=== PATIENT | male | born 1950 | race Two or more races ===

== ENCOUNTER 2020-07-17 14:57 | Outpatient (CLI) | payer MEDICARE, OTHER | END 2020-07-17 23:59 | disposition home or self-care (01) | LOC: MSC 14:57 | PROVIDERS: ATTEND Internal Medicine | DX: Z09 Encounter for follow-up examination after completed treatment for conditions other than malignant neoplasm (principal); R74.01 Elevation of levels of liver transaminase levels; I71.9 Aortic aneurysm of unspecified site, without rupture; K52.9 Noninfective gastroenteritis and colitis, unspecified; Z90.49 Acquired absence of other specified parts of digestive tract; I10 Essential (primary) hypertension; I48.0 Paroxysmal atrial fibrillation; J44.9 Chronic obstructive pulmonary disease, unspecified; K86.1 Other chronic pancreatitis; N20.0 Calculus of kidney; Z90.2 Acquired absence of lung [part of]; Z95.0 Presence of cardiac pacemaker; Z79.899 Other long term (current) drug therapy; Z88.0 Allergy status to penicillin; Z88.5 Allergy status to narcotic agent ==

== ENCOUNTER 2021-01-14 10:10 | Outpatient (CLI) | payer MEDICARE, OTHER | END 2021-01-14 23:59 | disposition home or self-care (01) | LOC: MSC 10:10 | PROVIDERS: ATTEND Internal Medicine | DX: F32.9 Major depressive disorder, single episode, unspecified (principal); G47.00 Insomnia, unspecified; R53.83 Other fatigue; Z95.4 Presence of other heart-valve replacement; R74.01 Elevation of levels of liver transaminase levels; I71.9 Aortic aneurysm of unspecified site, without rupture; K52.9 Noninfective gastroenteritis and colitis, unspecified; I10 Essential (primary) hypertension; Z92.89 Personal history of other medical treatment; I48.0 Paroxysmal atrial fibrillation; Z79.82 Long term (current) use of aspirin; J44.9 Chronic obstructive pulmonary disease, unspecified; K86.1 Other chronic pancreatitis; N20.0 Calculus of kidney; Z90.2 Acquired absence of lung [part of]; Z95.0 Presence of cardiac pacemaker; Z79.899 Other long term (current) drug therapy ==

== ENCOUNTER → 2021-01-27 | Outpatient (CLI) | payer MEDICARE, OTHER | END | disposition home or self-care (01) | LOC: MSC 14:30 | PROVIDERS: ATTEND Internal Medicine | DX: G47.00 Insomnia, unspecified (principal); Z95.4 Presence of other heart-valve replacement; F32.9 Major depressive disorder, single episode, unspecified; R74.01 Elevation of levels of liver transaminase levels; I71.9 Aortic aneurysm of unspecified site, without rupture; K52.9 Noninfective gastroenteritis and colitis, unspecified; I10 Essential (primary) hypertension; Z98.890 Other specified postprocedural states; I48.0 Paroxysmal atrial fibrillation; J44.9 Chronic obstructive pulmonary disease, unspecified; K86.1 Other chronic pancreatitis; N20.0 Calculus of kidney; Z85.118 Personal history of other malignant neoplasm of bronchus and lung; Z90.2 Acquired absence of lung [part of]; Z95.0 Presence of cardiac pacemaker; Z79.82 Long term (current) use of aspirin; Z79.899 Other long term (current) drug therapy ==

== ENCOUNTER 2022-03-17 11:31 | Outpatient (CLI) | payer MEDICARE, OTHER ==
[2022-03-17] MEDS ORDERED: CARV25TA2 PO (13:15)
[2022-03-17] MEDS ORDERED: URSO250T12 PO (13:15)
[2022-03-17] MEDS ORDERED: LOSA50TA39 PO (13:15)
[2022-03-19] MEDS ORDERED: VALS80TA31 PO (16:02)
[2022-03-19] MEDS ORDERED: AMLO-212 PO (16:02)
== END 2022-03-17 23:59 | disposition home or self-care (01) ==
LOC: MSC 11:31
PROVIDERS: ATTEND Internal Medicine
DX: I16.0 Hypertensive urgency (principal); N48.89 Other specified disorders of penis; G47.00 Insomnia, unspecified; Z95.4 Presence of other heart-valve replacement; Z95.0 Presence of cardiac pacemaker; I71.9 Aortic aneurysm of unspecified site, without rupture; F32.A Depression, unspecified; R74.01 Elevation of levels of liver transaminase levels; K52.9 Noninfective gastroenteritis and colitis, unspecified; I48.0 Paroxysmal atrial fibrillation; Z79.82 Long term (current) use of aspirin; J44.9 Chronic obstructive pulmonary disease, unspecified; K86.1 Other chronic pancreatitis; N20.0 Calculus of kidney; Z85.118 Personal history of other malignant neoplasm of bronchus and lung; Z90.2 Acquired absence of lung [part of]; Z98.890 Other specified postprocedural states; Z79.899 Other long term (current) drug therapy

== ENCOUNTER 2022-03-17 12:15 | Inpatient (IN) | payer MEDICARE, OTHER ==
[~2022-03-17] VITALS: Ht 193 cm; Wt 68.0 kg
--- NOTE | 2022-03-17 12:26 | NUR ---
To ER bed 1, "My BP is higher than usual its usually in 190s earlier it was >200. QURESHI", aaox3, breathing even and non labored, connected to monitor, awaiting md villela
--- NOTE | 2022-03-17 12:45 | NUR ---
SALINE LOCK ESTABLISHED, BLOOD DRAWN AND SENT TO LAB
[2022-03-17 12:59] LABS: BASOPHILS % (AUTO) 0.8 % (0.0-2.0); EOSINOPHILS % (AUTO) 2.4 % (0.0-6.0); HEMATOCRIT 42 % (39-51); LYMPHOCYTES # (AUTO) 1.4 K/uL (0.8-4.8); LYMPHOCYTES % (AUTO) 25.2 % (20.0-44.0); MEAN CORPUSCULAR HGB CONC 33 g/dl (31.0-36.0); MEAN CORPUSCULAR VOLUME 91 fL (80-96); MONOCYTES # (AUTO) 0.6 K/uL (0.1-1.30); NEUTROPHILS # (AUTO) 3.5 K/uL (1.8-8.9); NEUTROPHILS % (AUTO) 61.6 % (43.0-81.0); PLATELET COUNT (AUTO) 178 K/uL (150-450); RED BLOOD CELL COUNT(AUTO) 4.66 MIL/uL (4.5-6.0); WHITE BLOOD COUNT (AUTO) 5.6 K/uL (4.3-11.0)
[2022-03-17] MEDS ORDERED: CARV25TA2 PO (13:15)
[2022-03-17] MEDS ORDERED: LOSA50TA39 PO (13:15)
[2022-03-17] MEDS ORDERED: URSO250T12 PO (13:15)
[2022-03-17 13:20] LABS: CALCIUM, SERUM 9.5 mg/dL (8.5-10.1); CARBON DIOXIDE 33 mmol/L (21-32); CHLORIDE 102 mmol/L (98-107); CREATININE 1.2 mg/dL (0.6-1.3); GLUCOSE 83 mg/dL (74-106); POTASSIUM 4.2 mmol/L (3.5-5.1); SODIUM SERUM 137 mmol/L (136-145); UREA NITROGEN, BLOOD 15 mg/dL (7-18)
[2022-03-17] MEDS ORDERED: hydrALAZINE HCL IV 20 MG VIAL IV ONE (14:00)
[2022-03-17] MEDS ORDERED: hydrALAZINE HCL IV 20 MG VIAL ONE (14:01)
--- NOTE | 2022-03-17 16:43 | NUR ---
BED 313-1
--- NOTE | 2022-03-17 16:49 | NUR ---
REPORT GIVEN TO THOMAS WONG FOR SHANNON
--- NOTE | 2022-03-17 17:55 | NUR ---
TRANSFERRED TO BED 313 IN STABLE CONDITION
[2022-03-17] MEDS ORDERED: MAG HYDROX/AL HYDROX/SIMETH 30 ML UDC PO PRN (18:00)
[2022-03-17] MEDS ORDERED: hydrALAZINE HCL 25 MG TABLET PO PRN (18:00)
[2022-03-17] MEDS ORDERED: ONDANSETRON HCL/PF 4 MG/2 ML VIAL IVP PRN (18:00)
[2022-03-17] MEDS ORDERED: Z GUARD REMEDY 4 OZ OINT TP PRN (18:00)
[2022-03-17] MEDS ORDERED: ACETAMINOPHEN 325 MG TABLET PO PRN (18:00)
[2022-03-17] MEDS ORDERED: MAGNESIUM HYDROXIDE 30 ML UDC PO PRN (18:00)
[2022-03-17] MEDS ORDERED: ZOLPIDEM TARTRATE 5 MG TABLET PO PRN (18:00)
--- NOTE | 2022-03-17 18:53 | NUR ---
DRUPAL ARCHITECTAGENCY SERVICE COORDINATOR NOTES: RECEIVED REPORT BY PHONE FROM ER STAFF. PT CAME TO UNIT @ 1820 VIA GURNEY, OBSERVED PT WALKING TO BED WITH STEADY GAIT. AWAKE, ALERT ORIENTED X4, VERBALIZES NEEDS. NO S/S OF SOB AND ACUTE DISTRESS NOTED ON RA, O2 SAT @ 99%. BP ELEVATED, 176/117, MEDICATED ORDERED. TELE MONITOR READS SR- 77; TEMP- 98.0, RR- 18. PT ORIENTED TO UNIT AND STAFF. LATE DINNER ORDERED PER CARDIAC DIET. SAFETY MEASURES IN PLACE, CALL LIGHT AND TABLE WITHIN REACH. ENCOURAGED PT TO USE CALL LIGHT FOR ASSISTANCE, PT VERBALIZED UNDERSTANDING; WILL ENDORSE TO PM SHIFT FOR SHANNON.
[2022-03-17] MEDS: IBUPROFEN 600 MG TABLET PO PRN (19:12)
--- NOTE | 2022-03-17 19:25 | NUR ---
MANAGER PROPOSAL OPENING NOTE RECEIVED PT LAYING IN BED. PT A/O X4, ABLE TO MAKE NEEDS KNOWN. PT ON RA, TOLERATING RA WELL. NO ACUTE DISTRESS; NO C/O PAIN, OR DISCOMFORT AT THIS TIME. PT ON TELE MONITOR READING SR, WITH HR: 74. SAFETY MEASURES IN PLACE. CALL LIGHT WITHIN REACH, BED LOCKED IN LOW POSITION, SR UP X2. WILL CONTINUE TO MONITOR PT.
[2022-03-17 20:00] VITALS: BP 167/102
--- NOTE | 2022-03-17 21:00 | NUR ---
IMPRESSION PRINTER NOTE PT IS COMPLAINING OF HEADACHE. PT WAS GIVEN MOTRIN AT 1912, AND HYDRALAZINE 25 MG FOR HIGH BP. BUT MEDS ARE INEFFECTIVE. LESA RAMIRES CALLED AND MADE AWARE. ADVISES TO GIVE PT COREG X1, AND COCOLLINAR X1. ORDERS IMPLEMENTED, AND CARRIED OUT.
[2022-03-17] MEDS ORDERED: CARVEDILOL 12.5 MG TABLET PO SCH (21:30)
[2022-03-17] MEDS ORDERED: LOSARTAN POTASSIUM 50 MG TABLET PO SCH (21:30)
[2022-03-18] VITALS (7 sets, daily range): BP systolic 145–164; BP diastolic 93–100
--- NOTE | 2022-03-18 | NUR ---
DECK ENGINEER NOTE PT'S BP DECREASED TO 157/94.
[2022-03-18] MEDS: IBUPROFEN 600 MG TABLET PO PRN ×2 (00:10→20:35)
--- NOTE | 2022-03-18 06:47 | NUR ---
GAMB CUTTER CLOSING NOTE LEFT PT STILL SLEEPING IN BED. A/Ox4, ABLE TO MAKE NEEDS KNOWN. ON RA, BREATHING EVENLY AND UNLABORED. NO SOB NOTED. NO S/SX OF RESPIRATORY DISTRESS NOTED. NO C/O PAIN OR DISCOMFORT AT THIS TIME. IV ACCESS TO LEFT AC SL, IV INTACT. SAFETY PRECAUTIONS IN PLACE: BED IN LOWEST, LOCKED POSITION, SIDE RAILS UP x2, AND BRAKES ON. TABLE AND CALL LIGHT WITHIN REACH. WILL ENDORSE PT'S CARE TO INCOMING SHIFT NURSE.
[2022-03-18 07:15] LABS: CALCIUM, SERUM 9.6 mg/dL (8.5-10.1); MAGNESIUM 1.9 mg/dL (1.8-2.4); PHOSPHORUS 3.6 mg/dL (2.5-4.9); POTASSIUM 4.2 mmol/L (3.5-5.1)
[2022-03-18 07:28] LABS: BASOPHILS % (AUTO) 0.5 % (0.0-2.0); EOSINOPHILS % (AUTO) 1.3 % (0.0-6.0); HEMATOCRIT 44 % (39-51); HEMOGLOBIN 14.7 g/dL (13.5-17.5); LYMPHOCYTES # (AUTO) 1.2 K/uL (0.8-4.8); LYMPHOCYTES % (AUTO) 15.9 % (20.0-44.0); MEAN CORPUSCULAR HGB CONC 33 g/dl (31.0-36.0); MEAN CORPUSCULAR VOLUME 90 fL (80-96); MONOCYTES # (AUTO) 0.7 K/uL (0.1-1.30); MONOCYTES % (AUTO) 8.5 % (2.0-12.0); NEUTROPHILS # (AUTO) 5.7 K/uL (1.8-8.9); NEUTROPHILS % (AUTO) 73.8 % (43.0-81.0); PLATELET COUNT (AUTO) 195 K/uL (150-450); RED BLOOD CELL COUNT(AUTO) 4.88 MIL/uL (4.5-6.0); THYROID STIMULATING HORMONE 1.436 uIU/mL (0.358-3.74); WHITE BLOOD COUNT (AUTO) 7.7 K/uL (4.3-11.0)
--- NOTE | 2022-03-18 07:35 | NUR ---
PRIMARY CARE PROVIDER OPENING NOTE RECEIVED PT LAYING IN BED. PT A/O X4, ABLE TO MAKE NEEDS KNOWN. PT ON RA, TOLERATING RA WELL. NO SOB OR DISTRESS NOTED ; NO C/O PAIN, OR DISCOMFORT AT THIS TIME. PT ON TELE MONITOR READING SR, WITH HR: 74. SAFETY MEASURES IN PLACE. CALL LIGHT WITHIN REACH, BED LOCKED IN LOW POSITION, SR UP X2. WILL CONTINUE TO MONITOR PT.
[2022-03-18] MEDS: PANTOPRAZOLE 40 MG TABLET.DR PO SCH (08:31)
[2022-03-18] MEDS: URSODIOL 300 MG CAPSULE PO SCH ×2 (08:32→16:40)
[2022-03-18] MEDS: CARVEDILOL 12.5 MG TABLET PO SCH ×2 (08:34→16:46)
[2022-03-18] MEDS ORDERED: LOSARTAN POTASSIUM 50 MG TABLET PO SCH (09:00)
[2022-03-18] MEDS: AMLODIPINE BESYLATE 5 MG TABLET PO SCH (11:11)
[2022-03-18] MEDS: VALSARTAN 80 MG TABLET PO SCH (11:12)
--- NOTE | 2022-03-18 19:15 | NUR ---
ATHLETIC SHOE DESIGNER OPENING NOTE RECEIVED PT LAYING IN BED. PT A/O X4, ABLE TO MAKE NEEDS KNOWN. PT ON RA, TOLERATING RA WELL. NO SOB OR DISTRESS NOTED ; NO C/O PAIN, OR DISCOMFORT AT THIS TIME. PT ON TELE MONITOR READING SR, WITH HR: 74. SAFETY MEASURES IN PLACE. CALL LIGHT WITHIN REACH, BED LOCKED IN LOW POSITION, SR UP X2. WILL CONTINUE TO MONITOR PT. Addendum: 03/18/22 at 1941 by FOUZIA AVALOS RN DISREGARD THIS DOCUMENTATION ENTERED A WRONG TIME
--- NOTE | 2022-03-18 19:30 | NUR ---
RN OPENING NOTE RECEIVED PATIENT IN BED; AWAKE, ALERT AND ORIENTED X 4. BREATHING EVENLY AND NONLABORED. ON ROOM AIR; TOLERATING WELL. NOT IN ANY FORM OF RESPIRATORY DISTRESS. NO C/O ANY PAIN OR DISCOMFORT AT THIS TIME. ON TELEMETRY MONITORING: SINUS RHYTHM HR-75 BPM. WITH IV ACCESS ON LEFT ANTECUBITAL 20g: INTACT, PATENT AND SALINE LOCKED. ABLE TO MAKE NEEDS KNOWN. SAFETY MEASURES IMPLEMENTED: CALL LIGHT AND TABLE WITHIN REACH, SIDE RAILS UP X 2, BED IN LOWEST LOCKED POSITION. WILL CONTINUE PLAN OF CARE.
--- NOTE | 2022-03-18 19:38 | NUR ---
REAL TIME OPERATOR CLOSING NOTE PATIENT AWAKE AND VERBALLY RESPONSIVE . PT A/O X4, ABLE TO MAKE NEEDS KNOWN. PT ON RA, TOLERATING RA WELL. NO SOB OR DISTRESS NOTED ; NO C/O PAIN, OR DISCOMFORT AT THIS TIME. PT ON TELE MONITOR READING SR, WITH HR: 74. ALL DUE MEDS GIVEN ORDERED , SAFETY MEASURES IN PLACE. CALL LIGHT WITHIN REACH, BED LOCKED IN LOW POSITION, SR UP X2. WILL CONTINUE TO MONITOR PT.
--- NOTE | 2022-03-18 20:35 | NUR ---
RN NOTE PATIENT C/O PAIN ON NECK AND BACK. PRN IBUPROFEN 600 MG PO GIVEN ORDERED. WILL CONTINUE TO MONITOR AND REASSESS PT.
[2022-03-18] MEDS ORDERED: ENOXAPARIN SODIUM 40 MG/0.4 ML DISP.SYRIN SQ SCH (21:00)
--- NOTE | 2022-03-18 21:39 | NUR ---
RN NOTE LOVENOX 40 MG SQ HELD PER PATIENT'S REQUEST. NO S/S OF BLEEDING NOTED. WILL CONTINUE TO MONITOR PT.
[2022-03-19] VITALS: BP 147/90
[2022-03-19 04:00] VITALS: BP 137/89
--- NOTE | 2022-03-19 06:50 | NUR ---
RN CLOSING NOTE PATIENT IN BED; AWAKE, A/O X 4. STABLE ON ROOM AIR. IN NO ACUTE DISTRESS. DENIES ANY PAIN OR DISCOMFORT AT THIS TIME. ON TELEMETRY MONITORING: SINUS RHYTHM HR-75 BPM. WITH IV ACCESS ON LEFT ANTECUBITAL 20g: INTACT, PATENT AND SALINE LOCKED. ALL NEEDS ATTENDED. SAFETY MEASURES MAINTAINED: CALL LIGHT AND TABLE WITHIN REACH, SIDE RAILS UP X 2, BED IN LOWEST LOCKED POSITION. ENDORSED TO MORNING SHIFT FOR SHANNON.
--- NOTE | 2022-03-19 07:20 | NUR ---
CUSTOM GRINDER OPENING NOTE PATIENT IN BED, AWAKE, A/O X 4. STABLE ON ROOM AIR. IN NO ACUTE DISTRESS. DENIES ANY PAIN OR DISCOMFORT AT THIS TIME. ON TELEMETRY MONITORING: SINUS RHYTHM HR-70'S BPM. WITH IV ACCESS ON LEFT ANTECUBITAL 20g: INTACT, PATENT AND SALINE LOCKED. ALL NEEDS ATTENDED. SAFETY MEASURES MAINTAINED: CALL LIGHT AND TABLE WITHIN REACH, SIDE RAILS UP X 2, BED IN LOWEST LOCKED POSITION. IN STABLE CONDITION.
[2022-03-19 08:00] VITALS: BP 159/97
[2022-03-19] MEDS: URSODIOL 300 MG CAPSULE PO SCH ×2 (08:39→17:15)
[2022-03-19] MEDS: CARVEDILOL 12.5 MG TABLET PO SCH ×2 (08:39→17:16)
[2022-03-19] MEDS: VALSARTAN 80 MG TABLET PO SCH (08:40)
[2022-03-19] MEDS: PANTOPRAZOLE 40 MG TABLET.DR PO SCH (08:40)
[2022-03-19] MEDS: AMLODIPINE BESYLATE 5 MG TABLET PO SCH (08:41)
[2022-03-19] MEDS ORDERED: IV NS 0.9% 250 ML IV ONE (10:07)
[2022-03-19] MEDS ORDERED: IOHEXOL-350 100 ML VIAL IV ONE (10:07)
[2022-03-19 16:00] VITALS: BP 111/80
[2022-03-19] MEDS ORDERED: AMLO-212 PO (16:02)
[2022-03-19] MEDS ORDERED: VALS80TA31 PO (16:02)
--- NOTE | 2022-03-19 16:08 | NUR ---
DOGGER NOTE ENDORSED TO MARVIN FRAGSOO FOR CONTINUITY OF CARE.
[2022-03-19 17:16] VITALS: BP 111/80
--- NOTE | 2022-03-19 17:35 | NUR ---
GLASS CUTTER HELPER NOTE PATIENT IN BED, AWAKE, A/O X 4. STABLE ON ROOM AIR. IN NO ACUTE DISTRESS. DENIES ANY PAIN OR DISCOMFORT AT THIS TIME. ALL DUE MEDS GIVEN ORDERED , PATIENT WITH ORDER FOR DISCHARGE AND DISCHARGE INSTRUCTIONS PROVIDED REGARDING MEDICATIONS , FOLLOW UP WITH PCP AND SUPERVISOR RIDE ASSEMBLY DR NAIR AND INFO GIVEN AND WHEN TO CALL 911 IN CASE OF EMERGENCY , IV ACCESS REMOVED AND ID BAND , ALL BELONGINGS WERE ACCOUNTED FOR AND FORM WAS SIGNED ACCOMPANIED TO THE LOBBY AND PATIENT WILL GO HOME AND DRIVE HIS OWN TRUCK IN A STABLE CONDITION AND NO SOB OR DISTRESS NOTED AND NO C/O OF PAIN AND DISCOMFORT UPON DISCHARGE .
== END 2022-03-19 17:33 | disposition home or self-care (01) | DRG 305 ==
LOC: ER 12:17 → TELE 17:51
PROVIDERS: ADMIT Student in an Organized Health Care Education/Training Program; ATTEND Student in an Organized Health Care Education/Training Program
DX: I16.0 Hypertensive urgency (principal); Z95.2 Presence of prosthetic heart valve; Z20.822 Contact with and (suspected) exposure to COVID-19; Z95.0 Presence of cardiac pacemaker; Z86.79 Personal history of other diseases of the circulatory system; Z90.49 Acquired absence of other specified parts of digestive tract; Z88.5 Allergy status to narcotic agent; Z88.0 Allergy status to penicillin; Z79.899 Other long term (current) drug therapy; J44.9 Chronic obstructive pulmonary disease, unspecified; I11.9 Hypertensive heart disease without heart failure; N20.0 Calculus of kidney
CPT/HCPCS: 36415; 70450-TC; 71045-TC; 74175-TC; 80048-TC; 83735-TC; 83880; 84100-TC; 84443-TC; 84484-TC; 85025-TC; 87081-TC; 93307-TC; C9803; G0378; J0360; J1650; J7050; Q9967

== ENCOUNTER 2022-03-29 14:00 | Outpatient (CLI) | payer MEDICARE, MEDICAID ==
[~2022-03-29 14:00] MED LIST: AMLO-212 PO; CARV25TA2 PO; URSO250T12 PO; VALS80TA31 PO
== END 2022-03-29 23:59 | disposition home or self-care (01) ==
LOC: MSC 14:00
PROVIDERS: ATTEND Internal Medicine
DX: I16.0 Hypertensive urgency (principal); R53.83 Other fatigue; N48.89 Other specified disorders of penis; G47.00 Insomnia, unspecified; Z95.4 Presence of other heart-valve replacement; Z95.0 Presence of cardiac pacemaker; I71.9 Aortic aneurysm of unspecified site, without rupture; F32.A Depression, unspecified; R74.01 Elevation of levels of liver transaminase levels; K52.9 Noninfective gastroenteritis and colitis, unspecified; I48.0 Paroxysmal atrial fibrillation; Z79.82 Long term (current) use of aspirin; J44.9 Chronic obstructive pulmonary disease, unspecified; K86.1 Other chronic pancreatitis; N20.0 Calculus of kidney; Z85.118 Personal history of other malignant neoplasm of bronchus and lung; Z90.2 Acquired absence of lung [part of]; Z98.890 Other specified postprocedural states

== ENCOUNTER → 2022-04-01 | Outpatient (CLI) | payer MEDICARE, OTHER | END | disposition home or self-care (01) | LOC: MSC 09:33 | PROVIDERS: ATTEND Internal Medicine | DX: I16.0 Hypertensive urgency (principal); R53.83 Other fatigue; N48.89 Other specified disorders of penis; G47.00 Insomnia, unspecified; Z95.4 Presence of other heart-valve replacement; Z95.0 Presence of cardiac pacemaker; I71.9 Aortic aneurysm of unspecified site, without rupture; F32.A Depression, unspecified; R74.01 Elevation of levels of liver transaminase levels; K52.9 Noninfective gastroenteritis and colitis, unspecified; I48.0 Paroxysmal atrial fibrillation; Z79.82 Long term (current) use of aspirin; J44.9 Chronic obstructive pulmonary disease, unspecified; K86.1 Other chronic pancreatitis; N20.0 Calculus of kidney; Z85.118 Personal history of other malignant neoplasm of bronchus and lung; Z90.2 Acquired absence of lung [part of]; Z98.890 Other specified postprocedural states ==

== ENCOUNTER → 2022-04-15 | Outpatient (CLI) | payer MEDICARE, OTHER | END | disposition home or self-care (01) | LOC: MSC 16:00 | PROVIDERS: ATTEND Internal Medicine | DX: I10 Essential (primary) hypertension (principal); I95.9 Hypotension, unspecified; N48.89 Other specified disorders of penis; G47.00 Insomnia, unspecified; Z95.4 Presence of other heart-valve replacement; Z95.0 Presence of cardiac pacemaker; I71.9 Aortic aneurysm of unspecified site, without rupture; F32.A Depression, unspecified; R74.01 Elevation of levels of liver transaminase levels; K52.9 Noninfective gastroenteritis and colitis, unspecified; I48.0 Paroxysmal atrial fibrillation; Z79.82 Long term (current) use of aspirin; J44.9 Chronic obstructive pulmonary disease, unspecified; K86.1 Other chronic pancreatitis; N20.0 Calculus of kidney; Z85.118 Personal history of other malignant neoplasm of bronchus and lung; Z90.2 Acquired absence of lung [part of]; Z98.890 Other specified postprocedural states ==

== ENCOUNTER 2022-05-03 11:28 | Outpatient (CLI) | payer MEDICARE, OTHER ==
[2022-05-03 13:34] LABS: BASOPHILS % (AUTO) 0.4 % (0.0-2.0); EOSINOPHILS % (AUTO) 2.1 % (0.0-6.0); HEMATOCRIT 40 % (39-51); LYMPHOCYTES # (AUTO) 1.4 K/uL (0.8-4.8); LYMPHOCYTES % (AUTO) 27.4 % (20.0-44.0); MEAN CORPUSCULAR HGB CONC 33 g/dl (31.0-36.0); MEAN CORPUSCULAR VOLUME 91 fL (80-96); MONOCYTES # (AUTO) 0.5 K/uL (0.1-1.30); MONOCYTES % (AUTO) 9.6 % (2.0-12.0); NEUTROPHILS # (AUTO) 3.2 K/uL (1.8-8.9); NEUTROPHILS % (AUTO) 60.5 % (43.0-81.0); PLATELET COUNT (AUTO) 184 K/uL (150-450); WHITE BLOOD COUNT (AUTO) 5.3 K/uL (4.3-11.0)
[2022-05-03 13:42] LABS: BILIRUBIN,URINE NEGATIVE (NEGATIVE); COLOR,URINE YELLOW (YELLOW); LEUKOCYTE ESTERASE ,URINE NEGATIVE (NEGATIVE); NITRITE, URINE NEGATIVE (NEGATIVE); PH,URINE 5.5 (5.0-8.0); PROTEIN,URINE NEGATIVE (NEGATIVE); UGLUCOSE NEGATIVE (NEGATIVE); UROBILINOGEN,URINE 0.2 EU/dL (0.2)
[2022-05-03 14:07] LABS: THYROID STIMULATING HORMONE 2.647 uIU/mL (0.358-3.74)
[2022-05-03 14:10] LABS: C-REACTIVE PROTEIN 0.2 mg/dL (0.0-0.9)
[2022-05-03 14:12] LABS: URINE TOTAL PROTEIN 8.3 mg/dL (0-11.9)
[2022-05-03 14:18] LABS: ALBUMIN 3.8 g/dL (3.4-5.0); BILIRUBIN,TOTAL 0.6 mg/dL (0.2-1.0); CALCIUM, SERUM 8.8 mg/dL (8.5-10.1); CREATININE 1.1 mg/dL (0.6-1.3); MAGNESIUM 1.6 mg/dL (1.8-2.4); PHOSPHORUS 3.4 mg/dL (2.5-4.9); POTASSIUM 3.9 mmol/L (3.5-5.1); TOTAL PROTEIN, SERUM 6.8 g/dL (6.4-8.2)
== END 2022-05-03 23:59 | disposition home or self-care (01) ==
LOC: MSC 11:28
PROVIDERS: ATTEND Internal Medicine
DX: I10 Essential (primary) hypertension (principal); I95.9 Hypotension, unspecified; D22.39 Melanocytic nevi of other parts of face; G47.00 Insomnia, unspecified; Z95.4 Presence of other heart-valve replacement; Z95.0 Presence of cardiac pacemaker; I71.9 Aortic aneurysm of unspecified site, without rupture; F32.A Depression, unspecified; R74.01 Elevation of levels of liver transaminase levels; K52.9 Noninfective gastroenteritis and colitis, unspecified; I48.0 Paroxysmal atrial fibrillation; Z79.82 Long term (current) use of aspirin; J44.9 Chronic obstructive pulmonary disease, unspecified; K86.1 Other chronic pancreatitis; N20.0 Calculus of kidney; Z85.118 Personal history of other malignant neoplasm of bronchus and lung; Z90.2 Acquired absence of lung [part of]; Z98.890 Other specified postprocedural states
CPT/HCPCS: 80061; 85025; 83735; 83036; 84100; 85652; 81003; 36415; 84439; 82746; 84443; 82607; 80053; 86140; 82306; 82043; 82570; 84155; G0463

== ENCOUNTER → 2022-05-10 | Outpatient (CLI) | payer MEDICARE, OTHER | END | disposition home or self-care (01) | LOC: MSC 09:00 | PROVIDERS: ATTEND Internal Medicine | DX: I10 Essential (primary) hypertension (principal); I95.9 Hypotension, unspecified; E83.42 Hypomagnesemia; E55.9 Vitamin D deficiency, unspecified; E53.8 Deficiency of other specified B group vitamins; D22.39 Melanocytic nevi of other parts of face; G47.00 Insomnia, unspecified; Z95.4 Presence of other heart-valve replacement; Z95.0 Presence of cardiac pacemaker; I71.9 Aortic aneurysm of unspecified site, without rupture; F32.A Depression, unspecified; R74.01 Elevation of levels of liver transaminase levels; I48.0 Paroxysmal atrial fibrillation; Z79.82 Long term (current) use of aspirin; J44.9 Chronic obstructive pulmonary disease, unspecified; K86.1 Other chronic pancreatitis; N20.0 Calculus of kidney; Z85.118 Personal history of other malignant neoplasm of bronchus and lung; Z90.2 Acquired absence of lung [part of]; Z98.890 Other specified postprocedural states ==

== ENCOUNTER 2022-06-02 11:00 | Outpatient (CLI) | payer MEDICARE, OTHER ==
[2022-06-02 11:54] LABS: BASOPHILS % (AUTO) 0.6 % (0.0-2.0); EOSINOPHILS % (AUTO) 2.8 % (0.0-6.0); HEMATOCRIT 41 % (39-51); HEMOGLOBIN 13.6 g/dL (13.5-17.5); LYMPHOCYTES # (AUTO) 1.6 K/uL (0.8-4.8); LYMPHOCYTES % (AUTO) 25.9 % (20.0-44.0); MEAN CORPUSCULAR HGB CONC 33 g/dl (31.0-36.0); MEAN CORPUSCULAR VOLUME 90 fL (80-96); MONOCYTES # (AUTO) 0.6 K/uL (0.1-1.30); MONOCYTES % (AUTO) 8.9 % (2.0-12.0); NEUTROPHILS # (AUTO) 3.9 K/uL (1.8-8.9); NEUTROPHILS % (AUTO) 61.8 % (43.0-81.0); PLATELET COUNT (AUTO) 153 K/uL (150-450); WHITE BLOOD COUNT (AUTO) 6.3 K/uL (4.3-11.0)
[2022-06-02 12:10] LABS: IRON, SERUM 77 ug/dl (50-175); TOTAL IRON BINDING CAPACITY 305 ug/dl (250-450)
[2022-06-02 12:25] LABS: FERRITIN 215 ng/mL (8-388)
== END 2022-06-02 23:59 | disposition home or self-care (01) ==
LOC: MSC 11:00
PROVIDERS: ATTEND Internal Medicine
DX: I10 Essential (primary) hypertension (principal); E83.42 Hypomagnesemia; E55.9 Vitamin D deficiency, unspecified; E53.8 Deficiency of other specified B group vitamins; D22.39 Melanocytic nevi of other parts of face; G47.00 Insomnia, unspecified; Z95.4 Presence of other heart-valve replacement; Z95.0 Presence of cardiac pacemaker; I71.9 Aortic aneurysm of unspecified site, without rupture; F32.A Depression, unspecified; R74.01 Elevation of levels of liver transaminase levels; I48.0 Paroxysmal atrial fibrillation; Z79.82 Long term (current) use of aspirin; J44.9 Chronic obstructive pulmonary disease, unspecified; K86.1 Other chronic pancreatitis; N20.0 Calculus of kidney; Z85.118 Personal history of other malignant neoplasm of bronchus and lung; Z90.2 Acquired absence of lung [part of]; Z98.890 Other specified postprocedural states
CPT/HCPCS: 85025; 83540; 36415; 82728; G0463

== ENCOUNTER 2022-06-06 11:45 | Outpatient (CLI) | payer MEDICARE, OTHER ==
[2022-06-06 16:06] LABS: OCCULT BLOOD STOOL NEGATIVE (NEGATIVE)
== END 2022-06-06 23:59 | disposition home or self-care (01) ==
LOC: LAB 11:45
PROVIDERS: ATTEND Internal Medicine
DX: Z00.00 Encounter for general adult medical examination without abnormal findings (principal)
CPT/HCPCS: 82272-TC

== ENCOUNTER 2022-06-09 09:30 | Outpatient (CLI) | payer MEDICARE, OTHER | END 2022-06-09 23:59 | disposition home or self-care (01) | LOC: MSC 09:30 | PROVIDERS: ATTEND Internal Medicine | DX: R74.01 Elevation of levels of liver transaminase levels (principal); I10 Essential (primary) hypertension; E83.42 Hypomagnesemia; E55.9 Vitamin D deficiency, unspecified; E53.8 Deficiency of other specified B group vitamins; D22.39 Melanocytic nevi of other parts of face; G47.00 Insomnia, unspecified; Z95.4 Presence of other heart-valve replacement; Z95.0 Presence of cardiac pacemaker; I71.9 Aortic aneurysm of unspecified site, without rupture; F32.A Depression, unspecified; I48.0 Paroxysmal atrial fibrillation; Z79.82 Long term (current) use of aspirin; J44.9 Chronic obstructive pulmonary disease, unspecified; K86.1 Other chronic pancreatitis; N20.0 Calculus of kidney; Z85.118 Personal history of other malignant neoplasm of bronchus and lung; Z90.2 Acquired absence of lung [part of]; Z98.890 Other specified postprocedural states ==

== ENCOUNTER → 2023-10-11 | Outpatient (CLI) | payer MEDICARE, OTHER | END | disposition home or self-care (01) | LOC: MSC 14:45 | PROVIDERS: ATTEND Internal Medicine | DX: Z09 Encounter for follow-up examination after completed treatment for conditions other than malignant neoplasm (principal); I10 Essential (primary) hypertension; N20.0 Calculus of kidney; D64.9 Anemia, unspecified; E53.8 Deficiency of other specified B group vitamins; R74.01 Elevation of levels of liver transaminase levels; E83.42 Hypomagnesemia; E55.9 Vitamin D deficiency, unspecified; G47.00 Insomnia, unspecified; Z95.4 Presence of other heart-valve replacement; Z95.0 Presence of cardiac pacemaker; Z95.828 Presence of other vascular implants and grafts; I48.0 Paroxysmal atrial fibrillation; J44.9 Chronic obstructive pulmonary disease, unspecified; F32.A Depression, unspecified; K86.1 Other chronic pancreatitis; Z85.118 Personal history of other malignant neoplasm of bronchus and lung; Z90.2 Acquired absence of lung [part of] ==

== ENCOUNTER 2024-10-24 09:24 | Outpatient (CLI) | payer MEDICARE, OTHER ==
[2024-10-24 13:49] LABS: BASOPHILS % (AUTO) 0.6 % (0.0-2.0); EOSINOPHILS # (AUTO) 0.2 K/uL (0.0-0.7); EOSINOPHILS % (AUTO) 2.4 % (0.0-6.0); HEMATOCRIT 42 % (39-51); HEMOGLOBIN 14.8 g/dL (13.5-17.5); LYMPHOCYTES # (AUTO) 1.4 K/uL (0.8-4.8); LYMPHOCYTES % (AUTO) 20.6 % (20.0-44.0); MEAN CORPUSCULAR HEMOGLOBIN 32 PG (26.0-33.0); MEAN CORPUSCULAR HGB CONC 35 g/dl (31.0-36.0); MEAN CORPUSCULAR VOLUME 91 fL (80-96); MONOCYTES # (AUTO) 0.6 K/uL (0.1-1.30); MONOCYTES % (AUTO) 8.4 % (2.0-12.0); NEUTROPHILS # (AUTO) 4.5 K/uL (1.8-8.9); PLATELET COUNT (AUTO) 215 K/uL (150-450); RED BLOOD CELL COUNT(AUTO) 4.64 MIL/uL (4.5-6.0); RED CELL DISTRIBUTION WIDTH 14.4 % (11.5-15.0); WHITE BLOOD COUNT (AUTO) 6.6 K/uL (4.3-11.0)
[2024-10-28 18:09] LABS: RENIN, PLASMA 0.233 ng/mL/hr (.)
[2024-10-30 00:06] LABS: ALDOSTERONE,LCMS 1.9 ng/dL (.)
== END 2024-10-24 23:59 | disposition home or self-care (01) ==
LOC: LAB 09:24
PROVIDERS: ATTEND Internal Medicine
DX: I10 Essential (primary) hypertension (principal); E26.9 Hyperaldosteronism, unspecified; F43.9 Reaction to severe stress, unspecified; D64.9 Anemia, unspecified
CPT/HCPCS: 36415; 82088; 82384; 84244; 85025-TC

== ENCOUNTER 2024-10-24 09:54 | Outpatient (CLI) | payer MEDICARE, OTHER | END 2024-10-24 23:59 | disposition home or self-care (01) | LOC: US 09:54 | PROVIDERS: ATTEND Internal Medicine | DX: R90.82 White matter disease, unspecified (principal); I70.1 Atherosclerosis of renal artery; R51.9 Headache, unspecified | CPT/HCPCS: 70450-TC ==

== ENCOUNTER 2024-11-08 09:25 | Outpatient (CLI) | payer MEDICARE, OTHER ==
[2024-11-08 14:36] LABS: TRIGLYCERIDES 83 mg/dL (30-150)
[2024-11-08 15:24] LABS: CHOLESTEROL 135 mg/dL (<200); HDL CHOLESTEROL 56 mg/dL (40-60); LDL 74 mg/dL (0-99)
== END 2024-11-08 23:59 | disposition home or self-care (01) ==
LOC: LAB 09:25
PROVIDERS: ATTEND Internal Medicine
DX: I12.9 Hypertensive chronic kidney disease with stage 1 through stage 4 chronic kidney disease, or unspecified chronic kidney disease (principal); N18.9 Chronic kidney disease, unspecified; D64.9 Anemia, unspecified
CPT/HCPCS: 36415; 80061-TC